=== PATIENT | male | born 1980 | race Caucasian/White ===

== ENCOUNTER 2024-09-13 19:02 | Emergency (ER) | payer MEDICAID, OTHER, SELFPAY ==
[2024-09-13 19:19] VITALS: BP 127/83; PULSE 71; RESP 18; TEMP 36.9; O2SAT 97; BMI 28.4
--- NOTE | 2024-09-13 21:15 | ED_ITS ---
HPI - Skin/Abscess/Foreign Bdy General Chief complaint: Skin/Abscess/Foreign Body Stated complaint: abcess on wrist Time Seen by Provider: 09/13/24 21:00 Source: patient Mode of arrival: Ambulatory Limitations: no limitations History of Present Illness HPI narrative: Patient is a 44-year-old male who is here for evaluation of a area on his right forearm that is infected. He states that it started with a mosquito bite a couple days ago in his now progressed to increasing redness in his getting swelling in his right hand and also his right forearm. No fevers. Has not tried anything for the symptoms prior to. Related Data Previous Rx's Medication Instructions Recorded doxycycline hyclate 100 mg tablet 100 mg PO BID 7 days #14 tabs 09/13/24 Allergies Allergy/AdvReac Type Severity Reaction Status Date / Time No Known Drug Allergies Allergy Verified 09/13/24 19:19 Review of Systems Constitutional Constitutional: Reports system reviewed and no additional complaints, except as documented Musculoskeletal Musculoskeletal: Reports system reviewed and no additional complaints, except as documented Integumentary/Breasts Skin/Breast: Reports system reviewed and no additional complaints, except as documented Patient History Social History Smoking Status: Current every day smoker Smoking Status: Current every day smoker tobacco type: cigarettes and vaping alcohol intake frequency: other Substance Use Type: does not use Exam Initial Vital Signs Initial Vital Signs: Vital Signs Temperature 98.5 F 09/13/24 19:19 Pulse Rate 71 09/13/24 19:19 Respiratory Rate 18 09/13/24 19:19 Blood Pressure 127/83 09/13/24 19:19 Pulse Oximetry 97 09/13/24 19:19 Oxygen Delivery Method Room Air 09/13/24 19:19 Cardio Pulses: radial pulses present on the right Skin Other: Patient has a 2 cm x 2 cm area of written since skin ulceration to the radial aspect of the right wrist. He was right hand is swollen but there was no erythema. Right forearm is swollen but no erythema. Neuro Sensory Exam: no sensory deficits noted Extrem Other: Can flex and extend the wrist without discomfort. Course Orders Ordered: Discontinued Medications Doxycycline Hyclate (Doxycycline Hyclate 100 Mg Tablet) 100 mg PO NOW ONE Stop: 09/13/24 21:16 Last Admin: 09/13/24 21:31 Dose: 100 mg Documented By: DAYTON Vital Signs Vital signs: Vital Signs - 8 hr 09/13/24 19:19 09/13/24 21:35 Temperature 98.5 F Pulse Rate 71 65 Respiratory Rate 18 18 Blood Pressure 127/83 114/75 Pulse Oximetry 97 97 Oxygen Delivery Method Room Air Room Air MDM - Skin/Abscess/Foreign Bdy MDM Narrative Medical decision making narrative: Patient was an obvious cellulitis to the volar aspect of the right forearm with some swelling to the hand in the forearm however there was no erythema around these areas swelling. Bedside ultrasound does not show a deep abscess. Plan will be to place the patient on antibiotics. He was given 1st dose here in the emergency department a prescription was sent to the pharmacy of his choice. He was given return precautions. He expressed understanding and agreement. Discharge Plan Departure Patient Disposition: Home Clinical Impression: Cellulitis Instructions: DI for Cellulitis -- Adult Activity Restrictions/Additional Instructions: Take the antibiotics as directed. [facility] per your request. Keep the area clean with soap and water. Return to the emergency department for new symptoms. Prescriptions: New doxycycline hyclate 100 mg tablet 100 mg PO BID 7 Days Qty: 14 0RF Referrals: Miscellaneous,Doctor, [Primary Care Provider] - Stand Alone Forms: Patient Portal/API
[2024-09-13] MEDS: DOXYCYCLINE HYCLATE 100 MG TABLET PO (21:31)
[2024-09-13 21:35] VITALS: BP 114/75; PULSE 65; RESP 18; O2SAT 97
== END 2024-09-13 21:50 | disposition home or self-care (01) ==
PROVIDERS: Emergency Provider Emergency Medicine
DX: L03.113 Cellulitis of right upper limb (principal)
CPT/HCPCS: 99283

== ENCOUNTER 2025-10-06 11:25 | Emergency (ER) | payer OTHER, SELFPAY ==
[2025-10-06 11:27] VITALS: BP 146/76; PULSE 62; RESP 18; TEMP 36.9; O2SAT 97; BMI 32.0
--- NOTE | 2025-10-06 11:51 | DI.RAD.S_ITS ---
PROCEDURE: XR FINGER RT MIN 2V
--- NOTE | 2025-10-06 11:57 | ED_ITS ---
HPI - Skin/Abscess/Foreign Bdy
--- NOTE | 2025-10-06 11:57 | ED.SKABFB ---
HPI - Skin/Abscess/Foreign Bdy <Babs Smith PA-C - Last Filed: 10/06/25 15:39> General Chief complaint: Skin/Abscess/Foreign Body Stated complaint: Metal sliver in right middle finger x 3 days Time Seen by Provider: 10/06/25 11:51 Source: patient Mode of arrival: Ambulatory Limitations: no limitations History of Present Illness HPI narrative: Mr. Katz is a pleasant 45-year-old male with a past medical history of MRSA skin infection who presents to the emergency department for shard of metal in his right middle finger x 4 days. Patient states on Thursday he was working with shard of metal at work when a small piece of metal went into his right middle finger, overlying the dorsal aspect of the PIP joint. He attempted to get it out but was unsuccessful. Since then the PIP joint of the finger has started to become red and swollen, there was drainage at 1 point which has since stopped. He circled the area of redness around the middle finger and it is starting to spread. Reports that the finger feels like it is going to pop because it is so swollen. He denies fevers, chills, flu-like symptoms, chest pain, shortness of breath, medication allergies or daily prescription medications. Reports TDap UTD within 5 years. Related Data Previous Rx's ?Medication ?Instructions ?Recorded doxycycline hyclate 100 mg capsule 100 mg PO BID 7 days #14 caps 10/06/25 hydrocodone 5 mg-acetaminophen 325 1 tab PO BEDTIME #5 tabs 10/06/25 mg tablet Allergies Allergy/AdvReac Type Severity Reaction Status Date / Time No Known Drug Allergies Allergy Verified 09/13/24 19:19 Review of Systems <Babs Smith PA-C - Last Filed: 10/06/25 15:39> Review of Systems ROS Unobtainable: All systems reviewed & are unremarkable except as noted in HPI and below Patient History <Babs Smith PA-C - Last Filed: 10/06/25 15:39> Social History Smoking Status: Current every day smoker Smoking Status: Current every day smoker tobacco type: cigarettes and vaping alcohol intake frequency: other Exam <Babs Smith PA-C - Last Filed: 10/06/25 15:39> Narrative Exam Narrative: GENERAL: 45 year old patient appears stated age. Well-developed patient, in no acute distress. HEAD: Atraumatic. Normocephalic. EYES: No scleral icterus. No injection or drainage. NECK: Trachea midline. Cervical ROM intact. CARDIOVASCULAR: Regular rate RESPIRATORY: ?Nonlabored respirations. ?Speaking in clear, full sentences. ? EXTREMITIES: Right middle finger with edema starting at the dorsal PIP joint extending proximally. On the radial aspect of the PIP joint there is a small scab. Erythema extends proximally and radially. There is mild erythema extending onto the aspect of the dorsal hand. Patient is only able to minimally flex the finger at the PIP joint and D IP joint. There is brisk cap refill in the fingertip and sensation intact to light touch. There is no tenderness along the flexor tendon. NEURO: AOx3. ?Clear speech. ?Moves all 4 extremities appropriately. SKIN: Right middle finger erythema and edema described above. Initial Vital Signs Initial Vital Signs: Vital Signs Temperature 98.4 F 10/06/25 11:27 Pulse Rate 62 10/06/25 11:27 Respiratory Rate 18 10/06/25 11:27 Blood Pressure 146/76 H 10/06/25 11:27 Pulse Oximetry 97 10/06/25 11:27 Oxygen Delivery Method Room Air 10/06/25 11:27 <Jose Gallego DO - Last Filed: 10/07/25 06:56> Initial Vital Signs Initial Vital Signs: Vital Signs Temperature 98.4 F 10/06/25 11:27 Pulse Rate 62 10/06/25 11:27 Respiratory Rate 18 10/06/25 11:27 Blood Pressure 146/76 H 10/06/25 11:27 Pulse Oximetry 97 10/06/25 11:27 Oxygen Delivery Method Room Air 10/06/25 11:27 Course <Babs Smith PA-C - Last Filed: 10/06/25 15:39> Orders Ordered: Discontinued Medications Bacitracin (Bacitracin Oint 0.9 Gm Pckt) 1 applic TOP NOW ONE Stop: 10/06/25 13:16 Last Admin: 10/06/25 13:37 Dose: 1 applic Documented By: DENNIS Sodium Chloride (Normal Saline 0.9%) 1,000 mls @ 1,000 mls/hr IV BOLUS ONE Stop: 10/06/25 12:54 Last Infusion: 10/06/25 13:38 Dose: Infused Documented By: Admin: 10/06/25 12:14 Dose: 1,000 mls/hr Documented By: ARMIDA Vancomycin HCl (Vancomycin) 1,000 mg in 200 mls @ 200 mls/hr IV NOW ONE Stop: 10/06/25 14:59 Last Infusion: 10/06/25 15:30 Dose: Infused Documented By: Admin: 10/06/25 14:11 Dose: 200 mls/hr Documented By: ARMIDA Ketorolac Tromethamine (Ketorolac 30 Mg/Ml Vial) 15 mg IV NOW ONE Stop: 10/06/25 11:56 Last Admin: 10/06/25 12:13 Dose: 15 mg Documented By: ARMIDA Vital Signs Vital signs: Vital Signs - 8 hr 10/06/25 11:27 10/06/25 14:34 10/06/25 15:31 Temperature 98.4 F Pulse Rate 62 45 L 68 Respiratory Rate 18 16 16 Blood Pressure 146/76 H 117/78 121/66 Pulse Oximetry 97 95 97 Oxygen Delivery Method Room Air Room Air Room Air <Jose Gallego, DO - Last Filed: 10/07/25 06:56> Orders Ordered: Discontinued Medications Bacitracin (Bacitracin Oint 0.9 Gm Pckt) 1 applic TOP NOW ONE Stop: 10/06/25 13:16 Last Admin: 10/06/25 13:37 Dose: 1 applic Documented By: DENNIS Sodium Chloride (Normal Saline 0.9%) 1,000 mls @ 1,000 mls/hr IV BOLUS ONE Stop: 10/06/25 12:54 Last Infusion: 10/06/25 13:38 Dose: Infused Documented By: Admin: 10/06/25 12:14 Dose: 1,000 mls/hr Documented By: ARMIDA Vancomycin HCl (Vancomycin) 1,000 mg in 200 mls @ 200 mls/hr IV NOW ONE Stop: 10/06/25 14:59 Last Infusion: 10/06/25 15:30 Dose: Infused Documented By: Admin: 10/06/25 14:11 Dose: 200 mls/hr Documented By: ARMIDA Ketorolac Tromethamine (Ketorolac 30 Mg/Ml Vial) 15 mg IV NOW ONE Stop: 10/06/25 11:56 Last Admin: 10/06/25 12:13 Dose: 15 mg Documented By: ARMIDA Vital Signs Vital signs: Vital Signs - 8 hr 10/06/25 11:27 10/06/25 14:34 10/06/25 15:31 Temperature 98.4 F Pulse Rate 62 45 L 68 Respiratory Rate 18 16 16 Blood Pressure 146/76 H 117/78 121/66 Pulse Oximetry 97 95 97 Oxygen Delivery Method Room Air Room Air Room Air MDM - Skin/Abscess/Foreign Bdy <Babs Smith PA-C - Last Filed: 10/06/25 15:39> Medical Records Attestation: I reviewed the patient's medical records. Lab Data 10/06/25 12:30 10/06/25 12:30 Labs: Lab Results 10/06/25 10/06/25 Range/Units 12:05 12:30 WBC 7.3 (4.5-11.0) X10^3/uL RBC 4.33 L (4.5-5.9) X10^6/uL Hgb 12.9 L (13.5-17.5) g/dL Hct 37.8 L (41-53) % MCV 87.4 (80-100) fL MCH 29.9 (26-34) PG MCHC 34.2 (30-36) % RDW 13.8 (11.6-14.8) % Plt Count 211 (150-400) X10^3/uL Neut % (Auto) 55.1 (50-75) % Lymph % (Auto) 32.6 (25-40) % Hand % (Auto) 7.6 (3-14) % Eos % (Auto) 4.1 H (2-4) % Baso % (Auto) 0.6 (0-2) % Neut # (Auto) 4000 (6720-0804) /uL Lymph # (Auto) 2400 (5106-7607) /uL Hand # (Auto) 600 (0-900) /uL Eos # (Auto) 300 (0-450) /uL Baso # (Auto) 0 (0-100) /uL RBC Morphology Normal morphology ESR 12 (0-15) MM/HR Sodium 141 (137-145) mmol/L Potassium 3.9 (3.4-5.1) mmol/L Chloride 106 (98-107) mmol/L Carbon Dioxide 27 (22-32) mmol/L BUN 17 (9-20) mg/dL Creatinine 0.72 (0.66-1.25) mg/dL Estimated GFR > 60 (>60) mL/min BUN/Creatinine Ratio 23.6 H (6-22) Glucose 78 (70-99) mg/dL Lactate 0.9 (0.7-2.1) mmol/L Calcium 8.5 (8.4-10.2) mg/dL Total Bilirubin 0.4 (0.2-1.3) mg/dL AST 24 (17-59) IU/L ALT 16 (<50) IU/L Alkaline Phosphatase 64 (38-126) U/L C-Reactive Protein 2.3 H (<1.0) mg/dL Total Protein 7.2 (6.3-8.2) g/dL Albumin 4.2 (3.5-5.0) g/dL Globulin 3.0 (1.7-4.1) g/dL Albumin/Globulin Ratio 1.4 (1.0-2.8) Imaging Data Right Middle Finger XR: Radiologist's Impression: PROCEDURE: XR FINGER RT MIN 2V INDICATIONS: Right middle finger metal sliver dorsal PIP TECHNIQUE: AP hand, 2 views of the long finger COMPARISON: None. FINDINGS: Bones: No fractures or dislocations. No suspicious bony lesions. No bone erosion. Soft tissues: Soft tissue swelling of long finger proximally. No soft tissue gas or radiopaque foreign body. IMPRESSION: No radiopaque foreign body. Dictated by: Anmol Rodriguez M.D. on 10/06/2025 at 12:32 Approved by: Anmol Rodriguez M.D. on 10/06/2025 at 12:33 MDM Narrative Medical decision making narrative: 45-year-old male with a past medical history of MRSA skin infection who presents to the emergency department for shard of metal in his right middle finger x 4 days. TDAP reported UTD with 5 years. Differential diagnosis includes but is not limited to right middle finger foreign body, cellulitis, abscess, flexor tendon tenosynovitis, cellulitis, etc. On exam patient is in no acute distress, nontoxic-appearing, all vital signs within normal limits, SIRS screen negative. Reports metal sliver in the dorsal aspect of his right middle finger PIP joint 4 days ago, now with development of erythema, edema, extending proximally. He does not have erythema or tenderness along the flexor tendon then however this is a concern. We will obtain x-ray of the finger, baseline labs CBC, CMP, lactate, ESR, CRP, blood cultures, treat empirically with vancomycin given known history of MRSA. 1250: Spoke with orthopedic surgeon Dr. Palacios in regards to the patient's finger infection and x-ray. X-ray reveals no radiopaque foreign body, no soft tissue gas. Shared picture with the surgeon with the patient's consent. Orthopedic surgeon recommends performing an I and D in the ER, making a small incision, blunt dissection, irrigation with Betadine, culture of the wound, and then either leaving it open or using 1 suture for loose skin closure followed by outpatient oral antibiotics, warm Hibiclens soaks 3 times a day for 20 minutes in orthopedic follow up. Labs reassuring reveal normal WBC count 7.3. Sodium 141, potassium 3.9 creatinine 0.72. Lactate normal 0.9. CRP very slightly elevated 2.3. 1300: Discussed procedure with the patient, he verbalizes consent and agreement at this time. Patient tolerated incision and drainage of finger very well, there was purulent drainage which was swabbed and sent to lab for wound culture. Betadine wet to dry dressing was applied to the finger, he was provided with wound supplies and supplies for Hibiclens soaks. He received vancomycin in the ED. discussed outpatient follow up with Orthopedics and daily wound care and very strict ER return precautions. We will initiate doxycycline for potential MRSA coverage. Patient verbalized understanding of all information is agreeable to this plan. I did send him a few doses of hydrocodone to help with pain if needed for severe breakthrough pain. All questions answered, he is stable for discharge home, work note provided. <Jose Gallego, DO - Last Filed: 10/07/25 06:56> Lab Data Labs: Lab Results 10/06/25 10/06/25 Range/Units 12:05 12:30 WBC 7.3 (4.5-11.0) X10^3/uL RBC 4.33 L (4.5-5.9) X10^6/uL Hgb 12.9 L (13.5-17.5) g/dL Hct 37.8 L (41-53) % MCV 87.4 (80-100) fL MCH 29.9 (26-34) PG MCHC 34.2 (30-36) % RDW 13.8 (11.6-14.8) % Plt Count 211 (150-400) X10^3/uL Neut % (Auto) 55.1 (50-75) % Lymph % (Auto) 32.6 (25-40) % Hand % (Auto) 7.6 (3-14) % Eos % (Auto) 4.1 H (2-4) % Baso % (Auto) 0.6 (0-2) % Neut # (Auto) 4000 (8329-8457) /uL Lymph # (Auto) 2400 (2698-8923) /uL Hand # (Auto) 600 (0-900) /uL Eos # (Auto) 300 (0-450) /uL Baso # (Auto) 0 (0-100) /uL RBC Morphology Normal morphology ESR 12 (0-15) MM/HR Sodium 141 (137-145) mmol/L Potassium 3.9 (3.4-5.1) mmol/L Chloride 106 (98-107) mmol/L Carbon Dioxide 27 (22-32) mmol/L BUN 17 (9-20) mg/dL Creatinine 0.72 (0.66-1.25) mg/dL Estimated GFR > 60 (>60) mL/min BUN/Creatinine Ratio 23.6 H (6-22) Glucose 78 (70-99) mg/dL Lactate 0.9 (0.7-2.1) mmol/L Calcium 8.5 (8.4-10.2) mg/dL Total Bilirubin 0.4 (0.2-1.3) mg/dL AST 24 (17-59) IU/L ALT 16 (<50) IU/L Alkaline Phosphatase 64 (38-126) U/L C-Reactive Protein 2.3 H (<1.0) mg/dL Total Protein 7.2 (6.3-8.2) g/dL Albumin 4.2 (3.5-5.0) g/dL Globulin 3.0 (1.7-4.1) g/dL Albumin/Globulin Ratio 1.4 (1.0-2.8) MDM Narrative Medical decision making narrative: 45-year-old male with a past medical history of MRSA skin infection who presents to the emergency department for shard of metal in his right middle finger x 4 days. TDAP reported UTD with 5 years. Differential diagnosis includes but is not limited to right middle finger foreign body, cellulitis, abscess, flexor tendon tenosynovitis, cellulitis, etc. On exam patient is in no acute distress, nontoxic-appearing, all vital signs within normal limits, SIRS screen negative. Reports metal sliver in the dorsal aspect of his right middle finger PIP joint 4 days ago, now with development of erythema, edema, extending proximally. He does not have erythema or tenderness along the flexor tendon then however this is a concern. We will obtain x-ray of the finger, baseline labs CBC, CMP, lactate, ESR, CRP, blood cultures, treat empirically with vancomycin given known history of MRSA. 1250: Spoke with orthopedic surgeon Dr. Palacios in regards to the patient's finger infection and x-ray. X-ray reveals no radiopaque foreign body, no soft tissue gas. Shared picture with the surgeon with the patient's consent. Orthopedic surgeon recommends performing an I and D in the ER, making a small incision, blunt dissection, irrigation with Betadine, culture of the wound, and then either leaving it open or using 1 suture for loose skin closure followed by outpatient oral antibiotics, warm Hibiclens soaks 3 times a day for 20 minutes in orthopedic follow up. Labs reassuring reveal normal WBC count 7.3. Sodium 141, potassium 3.9 creatinine 0.72. Lactate normal 0.9. CRP very slightly elevated 2.3. 1300: Discussed procedure with the patient, he verbalizes consent and agreement at this time. Patient tolerated incision and drainage of finger very well, there was purulent drainage which was swabbed and sent to lab for wound culture. Betadine wet to dry dressing was applied to the finger, he was provided with wound supplies and supplies for Hibiclens soaks. He received vancomycin in the ED. discussed outpatient follow up with Orthopedics and daily wound care and very strict ER return precautions. We will initiate doxycycline for potential MRSA coverage. Patient verbalized understanding of all information is agreeable to this plan. I did send him a few doses of hydrocodone to help with pain if needed for severe breakthrough pain. All questions answered, he is stable for discharge home, work note provided. Co-sign statement: I was available for consultation during this patient's emergency department visit. This chart is being signed by myself for administrative purposes only. I do not have direct contact with this patient during this visit. They were seen independently by the APC. Discharge Plan Departure Patient Disposition: Home Clinical Impression: Wound infection, Superficial injury of right middle finger with infection Instructions: DI for Skin Abscess Activity Restrictions/Additional Instructions: Dear Mr. Katz, Thank you for coming to the emergency department. Today you were evaluated for possible metal shard in your right middle finger. X-ray did not reveal any metal however you do have an infection of the finger. An incision and drainage was performed. It is very important that you follow up with [facility] for further management and complete all of your oral antibiotics. Please do 3 warm soapy water soaks of your middle finger for 20 minutes every single day. Use the provided Hibiclens soap. Keep the wound clean and covered at all times. Return to the emergency department immediately if develop fevers, shaking chills, redness extending up the hand/arm or any other worsening symptoms or concerns. YOU HAVE BEEN PRESCRIBED A SHORT COURSE OF NARCOTIC MEDICATIONS. THESE ARE POTENTIALLY DANGEROUS AND ADDICTIVE MEDICATIONS THAT SHOULD BE USED CAREFULLY. WHILE ON THESE MEDICATIONS YOU CANNOT DRIVE OR OPERATE HEAVY MACHINERY. ADDITIONALLY, YOU CANNOT SIGN LEGAL DOCUMENTS OR PERFORM ANY DUTIES SUCH THIS. MANY PEOPLE GET CONSTIPATED ON NARCOTIC MEDICATIONS SO IT WOULD BE ADVISABLE TO DISCUSS STOOL SOFTENERS WITH THE PHARMACIST WHEN YOU SOUND INSTALLATION WORKER YOUR PRESCRIPTION. PLEASE UNDERSTAND THAT WE CANNOT PROVIDE FURTHER REFILLS OF NARCOTICS OR CONTROLLED SUBSTANCES THROUGH THE ED AND YOUR PAIN MANAGEMENT WILL NEED TO BE THROUGH YOUR PRIMARY CARE PROVIDER Please follow up with your primary care doctor within the next 2-3 days for ER follow-up. (If you do not have a PCP you can call [phone]. ?to schedule an appointment with an [facility] Primary Care Provider) IF YOU DEVELOP ANY NEW OR WORSENING SYMPTOMS, RETURN TO THE ER! Please read the attached instructions, they highlight more specific treatments and interventions for you at home. Thank you for letting me participate in your care, Babs Smith PA-C Prescriptions: New hydrocodone-acetaminophen 5-325 mg tablet 1 tab PO BEDTIME Qty: 5 0RF doxycycline hyclate 100 mg capsule 100 mg PO BID 7 Days Qty: 14 0RF Referrals: Bola Downing DO [Primary Care Provider, Internal Medicine] Surjit Powell MD [Physician, Orthopedic Surgery] Referral Note: MIDDLE FINGER INFECTION Stand Alone Forms: Patient Portal/API, Work Release Note
[2025-10-06] MEDS: KETOROLAC 30 MG/ML VIAL 15 MG IV (12:13)
[2025-10-06] MEDS: SODIUM CHLORIDE 0.9% 1,000 ML 1000 ML IV (12:14)
[2025-10-06 12:41] LABS: Lactate (Lactic Acid) 0.9 mmol/L (0.7-2.1)
[2025-10-06 12:47] LABS: Add Manual Diff / Slide Review SLIDE REVIEW; Hematocrit 37.8 % (41-53); Hemoglobin 12.9 g/dL (13.5-17.5); Lymphocytes Absolute Auto 2400 /uL (1100-4500); Mean Corpuscular HGB Conc 34.2 % (30-36); Mean Corpuscular Hemoglobin 29.9 PG (26-34); Mean Corpuscular Volume 87.4 fL (80-100); Platelet Count 211 X10^3/uL (150-400)
[2025-10-06 12:58] LABS: Alanine Aminotransferase 16 IU/L (<50); Albumin 4.2 g/dL (3.5-5.0); Albumin Globulin Ratio 1.4 (1.0-2.8); Alkaline Phosphatase 64 U/L (38-126); Blood Urea Nitrogen 17 mg/dL (9-20); Calcium 8.5 mg/dL (8.4-10.2); Carbon Dioxide 27 mmol/L (22-32); Chloride 106 mmol/L (98-107); Estimated Glomerular Filt Rate > 60 mL/min (>60); Globulin 3.0 g/dL (1.7-4.1); Glucose 78 mg/dL (70-99); HEMOLYSIS 32 (0-50); Potassium 3.9 mmol/L (3.4-5.1); Sodium 141 mmol/L (137-145); Total Protein 7.2 g/dL (6.3-8.2)
[2025-10-06 13:00] LABS: RBC Morphology Normal Morphology
[2025-10-06] MEDS: BACITRACIN OINT 0.9 GM PCKT 1 APPLIC TOP (13:37)
[2025-10-06] MEDS: VANCOMYCIN 1,000 MG/200 ML PIGGYBACK 200 MG IV (14:11)
[2025-10-06 14:34] VITALS: BP 117/78; PULSE 45; RESP 16; O2SAT 95
--- NOTE | 2025-10-06 15:30 | PC.NURSE ---
This RNs first interaction with patient, provided d/c instructions and removed IV.
[2025-10-06 15:31] VITALS: BP 121/66; PULSE 68; RESP 16; O2SAT 97
== END 2025-10-06 15:32 | disposition home or self-care (01) ==
PROVIDERS: Emergency Provider Physician Assistant; PCP Student in an Organized Health Care Education/Training Program
DX: S69.91XA Unspecified injury of right wrist, hand and finger(s), initial encounter (principal); L02.511 Cutaneous abscess of right hand
CPT/HCPCS: 10060; 36415; 73140; 80053; 83605; 85025; 85651; 86140; 87040; 87070; 87075; 87077; 87147; 87186; 87205; 96361; 96365; 96375; 99284; J1885; J3375; J7030